=== PATIENT | female | born 1970 | race Caucasian/White ===

== ENCOUNTER → 2017-04-01 | Outpatient (CLI) | payer OTHER ==
[~2017-04-01] MED LIST: 'XANAX1 MG PO; ALPRAZOLAM0.5 M3 PO; ARIPIPRAZOLE10 MG PO; ASPIRIN81 M1 PO; B12,B-12,B 12500 MC1 PO; BRIN20TA PO; EFFEXOR-XR37.5 MG PO; EFFEXOR37.5 MG PO; FUROSEMIDE20 M1 PO; HYDROXYZINE PAM50 MG PO; NAPROSYN500 MG PO; NATURE'S BLEND F1 MG PO; PRAVASTATIN SOD40 MG PO; TOPAMAX50 MG PO; VENLAFAXINE H37.5 M1 PO; VITAMIN D50000 I3 PO; WELLBUTRIN XL300 MG PO; XANAX2 M1 PO
== END | disposition home or self-care (01) ==
LOC: US 03-24 07:30
DX: K76.0 Fatty (change of) liver, not elsewhere classified (principal)

== ENCOUNTER → 2019-01-25 | Outpatient (CLI) | payer OTHER | END | disposition home or self-care (01) | LOC: MAMMO 01-17 14:00 | DX: Z12.31 Encounter for screening mammogram for malignant neoplasm of breast (principal) ==

== ENCOUNTER 2023-01-05 14:59 | Emergency (ER) | payer BC ==
[~2023-01-05] VITALS: Ht 172.7 cm; Wt 105.7 kg
[2023-01-05 19:35] LABS: BASO % 0.5 % (0.0-1.0); EOS # 0.1 10*3/uL (0.0-0.4); EOS % 1.8 % (1.0-4.0); HEMATOCRIT 39.6 % (37.0-47.0); LYMPH # 2.4 10*3/uL (1.3-4.4); LYMPH % 35.9 % (27.0-41.0); MEAN CELL VOLUME 89.8 fl (81.0-99.0); MEAN CORPUSCULAR HGB 30.6 pg (27.0-31.0); MEAN CORPUSCULAR HGB CONC 34.1 g/dl (33.0-37.0); MEAN PLATELET VOLUME 9.9 fl (9.6-12.3); MONO # 0.3 10*3/uL (0.1-1.0); NEUT # 3.8 10*3/uL (2.3-7.9); NEUT % 56.6 % (47.0-73.0); PLATELET COUNT AUTOMATED 233 10*3/uL (130-400); RED BLOOD COUNT 4.41 10*6/uL (4.10-5.10); RED CELL DISTRI WIDTH 12.2 % (0-14.5); WHITE BLOOD COUNT 6.7 10*3/uL (4.8-10.8)
[2023-01-05 19:50] LABS: ACT PARTIAL THROMBO TIME 30.7 SECONDS (20.0-32.1); INTERNATIONAL NORM RATIO 1.1 (2.0-3.5)
[2023-01-05] MEDS ORDERED: PENICILLIN250 MG/55 PO (19:55)
[2023-01-05 19:59] LABS: ALKALINE PHOSPHATASE 143 U/L (46-116); BUN 15 mg/dl (9-23); CHLORIDE 104 mmol/L (98-107); LIPASE 34 U/L (12-53); POTASSIUM 3.6 mmol/L (3.4-5.1); SGPT/ALT 18 U/L (10-49); TOTAL PROTEIN 7.5 gm/dL (6.0-8.0)
== END 2023-01-05 20:53 | disposition home or self-care (01) ==
LOC: ED 14:59
PROVIDERS: Internal Medicine
DX: L03.90 Cellulitis, unspecified (principal); F32.A Depression, unspecified; F41.9 Anxiety disorder, unspecified; E78.00 Pure hypercholesterolemia, unspecified; Z91.041 Radiographic dye allergy status; Z90.49 Acquired absence of other specified parts of digestive tract; Z90.710 Acquired absence of both cervix and uterus; Z90.89 Acquired absence of other organs; Z98.51 Tubal ligation status; F17.200 Nicotine dependence, unspecified, uncomplicated